=== PATIENT | female | born 1950 | race Caucasian/White ===

== ENCOUNTER 2024-12-25 09:26 | Outpatient (RCR) | payer OTHER, SELFPAY | END 2024-12-25 23:59 | disposition home or self-care (01) | LOC: RPT 09:26 | PROVIDERS: ATTENDING PHYSICIAN Internal Medicine | DX: I97.2 Postmastectomy lymphedema syndrome (principal); R53.0 Neoplastic (malignant) related fatigue; L90.5 Scar conditions and fibrosis of skin; C50.911 Malignant neoplasm of unspecified site of right female breast; R26.89 Other abnormalities of gait and mobility; Z73.6 Limitation of activities due to disability | CPT/HCPCS: 97110; 97140; 97163; 97530 ==

== ENCOUNTER 2025-02-17 10:46 | Outpatient (RCR) | payer OTHER, SELFPAY | END 2025-02-17 23:59 | disposition home or self-care (01) | LOC: RPT 10:46 | PROVIDERS: ATTENDING PHYSICIAN Internal Medicine | DX: I97.2 Postmastectomy lymphedema syndrome (principal); R53.0 Neoplastic (malignant) related fatigue; L90.5 Scar conditions and fibrosis of skin; C50.911 Malignant neoplasm of unspecified site of right female breast; R26.89 Other abnormalities of gait and mobility; Z73.6 Limitation of activities due to disability | CPT/HCPCS: 97110; 97112; 97140; 97530 ==

== ENCOUNTER 2025-03-12 06:51 | Outpatient (RCR) | payer OTHER, SELFPAY | END 2025-03-12 08:53 | disposition home or self-care (01) | LOC: RPT 06:51 | PROVIDERS: ATTENDING PHYSICIAN Internal Medicine | DX: I97.2 Postmastectomy lymphedema syndrome (principal); R53.0 Neoplastic (malignant) related fatigue; L90.5 Scar conditions and fibrosis of skin; C50.911 Malignant neoplasm of unspecified site of right female breast; R26.89 Other abnormalities of gait and mobility; Z73.6 Limitation of activities due to disability | CPT/HCPCS: 97110; 97112 ==